=== PATIENT | male | born 1960 | race Caucasian/White ===

== ENCOUNTER 2018-05-10 00:25 | Emergency (ER) | payer MEDICAID ==
[~2018-05-10] VITALS: Ht 172.7 cm; Wt 68.6 kg
[~2018-05-10 00:25] MED LIST: HYDR-4383 PO
[2018-05-10 01:00] VITALS: BP 151/89
== END 2018-05-10 02:54 | disposition left against medical advice (07) ==
LOC: ER 00:25
DX: S20.212A Contusion of left front wall of thorax, initial encounter (principal); S20.211A Contusion of right front wall of thorax, initial encounter; Z87.442 Personal history of urinary calculi; V27.4XXA Motorcycle driver injured in collision with fixed or stationary object in traffic accident, initial encounter; Y93.55 Activity, bike riding; Y92.488 Other paved roadways as the place of occurrence of the external cause; Y99.8 Other external cause status
CPT/HCPCS: 71046; 99283

== ENCOUNTER 2019-02-16 02:13 | Emergency (ER) | payer MEDICAID ==
[~2019-02-16] VITALS: Ht 170.2 cm; Wt 80.0 kg
[2019-02-16 02:16] VITALS: BP 161/89
[2019-02-16] MEDS ORDERED: amoxicillin 250mg capsule PO ONE (03:15)
[2019-02-16] MEDS ORDERED: AMOX-101 PO (03:15)
== END 2019-02-16 03:41 | disposition home or self-care (01) ==
LOC: ER 02:14
DX: K08.89 Other specified disorders of teeth and supporting structures (principal); F17.210 Nicotine dependence, cigarettes, uncomplicated; Z87.442 Personal history of urinary calculi; Z79.899 Other long term (current) drug therapy
CPT/HCPCS: 99283

== ENCOUNTER 2021-01-23 18:31 | Emergency (ER) | payer MEDICAID ==
[~2021-01-23] VITALS: Ht 200.7 cm; Wt 79.5 kg
[2021-01-23 19:30] LABS: CLARITY,URINE CLOUDY (Clear); COLOR,URINE YELLOW (Yellow); PH,URINE 6.5 (4.8-8.0); UA COLLECTION TYPE CLN CATCH MIDSTREAM
[2021-01-23 19:31] LABS: GLUCOSE, URINE NEGATIVE (Neg); KETONES,URINE NEGATIVE (Neg); LEUKOCYTE ESTERASE ,URINE SMALL (Neg); NITRITES, URINE NEGATIVE (Neg); OCCULT BLOOD,URINE LARGE (Neg); PROTEIN,URINE NEGATIVE (Neg); UROBILINOGEN,URINE 0.2 E.U/dL (0.2-1.0)
[2021-01-23 19:43] LABS: MUCUS STRANDS FEW /LPF (Neg); SQUAMOUS EPITHELIAL CELL,UR FEW /LPF (FEW)
[2021-01-23 19:44] LABS: BACTERIA,URINE 2+ /HPF (Neg); RBC,URINE TNTC /HPF (0-2)
[2021-01-23] MEDS ORDERED: IBUP-1985 PO (19:54)
[2021-01-23] MEDS ORDERED: FLO0.4C PO (19:55)
[2021-01-23 20:19] VITALS: BP 130/80
== END 2021-01-23 20:20 | disposition home or self-care (01) ==
LOC: ER 18:33
DX: R10.84 Generalized abdominal pain (principal); R31.9 Hematuria, unspecified; Z87.442 Personal history of urinary calculi; Z79.899 Other long term (current) drug therapy
CPT/HCPCS: 81001; 87088; 99283